=== PATIENT | female | born 1970 | race Caucasian/White ===

== ENCOUNTER 2016-11-17 19:54 | Emergency (ER) | payer OTHER ==
[2016-11-17] MEDS ORDERED: NEOMYCIN/POLYMYX/HC OTIC DROPS LEFTEAR STA (20:44)
[2016-11-17] MEDS ORDERED: AMOXICILLIN 250 MG CAPSULE PO STA (20:44)
[2016-11-17] MEDS ORDERED: AMOXICILLIN 250 MG CAPSULE PO ONE (20:54)
[2016-11-17] MEDS ORDERED: NEOMYCIN/POLYMYX/HC OTIC DROPS ONE (20:54)
== END 2016-11-17 21:10 | disposition home or self-care (01) ==
DX: H66.002 Acute suppurative otitis media without spontaneous rupture of ear drum, left ear (principal); R03.0 Elevated blood-pressure reading, without diagnosis of hypertension
CPT/HCPCS: 99283; A9270